=== PATIENT | male | born 1985 | race Caucasian/White ===

== ENCOUNTER 2016-09-25 00:50 | Emergency (ER) | payer OTHER ==
[~2016-09-25] VITALS: Ht 172.7 cm; Wt 118.9 kg
[~2016-09-25 00:50] MED LIST: allergy med
[2016-09-25 01:14] VITALS: BP 143/92
== END 2016-09-25 01:58 | disposition home or self-care (01) ==
LOC: EME 00:50 → EXP 00:50
DX: S00.93XA Contusion of unspecified part of head, initial encounter (principal); Y09 Assault by unspecified means; Y92.239 Unspecified place in hospital as the place of occurrence of the external cause; Y99.0 Civilian activity done for income or pay
CPT/HCPCS: 99281; 99284